=== PATIENT | male | born 1950 | race Caucasian/White ===

== ENCOUNTER 2018-01-28 09:30 | Inpatient (IN) | payer OTHER, MEDICARE ==
[2018-01-30] MEDS ORDERED: morphINE PF 0.2 MG in SYRINGE INTRATHECAL 1 SYR IT ONE (05:51)
[2018-01-30] MEDS ORDERED: GABAPENTIN 300 MG CAP PO ONE (05:51)
[2018-01-30] MEDS ORDERED: ACETAMINOPHEN 500 MG TAB PO ONE (05:51)
[2018-01-30] MEDS ORDERED: ceFAZolin 2 GM/DEXTROSE 100 ML IV ONE (05:51)
[2018-01-30] MEDS ORDERED: fentaNYL 50 MCG in SYRINGE INTRATHECAL 1 SYR IT ONE (05:51)
[2018-01-30] MEDS ORDERED: LR 1,000 ML IV ONE (05:53)
[2018-01-30] MEDS ORDERED: TRANEXAMIC ACID 1,000 MG in NS 100 ML IV ONE (06:00)
[2018-01-30] MEDS ORDERED: BUPIVACAINE 0.25% 30 ML SDV ONE (06:43)
[2018-01-30] MEDS ORDERED: EPINEPHrine 1 MG/ML INJ ONE (06:43)
[2018-01-30] MEDS ORDERED: CHLORHEXIDINE GLUC HIBICLENS 118 ML BTL TP ONE (06:43)
[2018-01-30] MEDS ORDERED: BACITRACIN 50,000 UNITS/10 ML SYR IRR ONE ×3 (06:44→12:09)
[2018-01-30] MEDS ORDERED: THROMBIN (BOVINE) 5,000 UNIT VIAL TP ONE (06:44)
--- NOTE | 2018-01-30 06:58 | PDHPUP ---
History & Physical Update H&P update statement: This history and physical update is based on an assessment of the patient which was completed after admission or registration (within 24 hours), but prior to the surgery/procedure. H&P update: H&P reviewed & patient examined, no change in patient's condition since H&P completed
[2018-01-30] MEDS ORDERED: MIDAZOLAM 2 MG/2 ML VIAL IVP ONE (07:01)
--- NOTE | 2018-01-30 07:01 | PDANEPAE ---
ANE History of Present Illness 68 year with LBP ANE Past Medical History - Cardiovascular History Hx Hypertension: Yes Hx Arrhythmias: No Hx Chest Pain: No Hx Coronary Artery / Peripheral Vascular Disease: No Hx CHF / Valvular Disease: No Hx Palpitations: No - Pulmonary History Hx COPD: No Hx Asthma/Reactive Airway Disease: No Hx Recent Upper Respiratory Infection: No Hx Oxygen in Use at Home: No Hx Sleep Apnea: No Sleep Apnea Screening Result - Last Documented: Positive Pulmonary History Comment: KOBE triggers - Neurologic History Hx Cerebrovascular Accident: No Hx Seizures: No Hx Dementia: No Neurologic History Comment: right leg nerve pain, tingling - Endocrine History Hx Diabetes: No - Renal History Hx Renal Disorders: No - Liver History Hx Hepatic Disorders: No - Neurological & Psychiatric Hx Hx Neurological and Psychiatric Disorders: No - Cancer History Hx Cancer: No - Congenital Disorder History Hx Congenital Disorders: No - GI History Hx Gastrointestinal Disorders: No - Other Health History Other Health History: glasses for reading. torn rotator cuffs in both shoulders - Chronic Pain History Chronic Pain: Yes (low back, bilateral shoulders) - Surgical History Prior Surgeries: lumbar discectomy, 2002. 2 spinal injections ANE Review of Systems Review of systems is: negative Review of Systems: - Exercise capacity METS (RN): 4 METS ANE Patient History - Allergies Allergies/Adverse Reactions: No Known Allergies Allergy (Verified 01/21/18 15:24) - Home Medications Home medications: home medication list seen and reviewed Home Medications: Lisinopril/Hctz 20/12.5MG 01/21/18 [Last Taken 01/30/18] - NPO status NPO Status: no food or drink >8 hours NPO Since - Liquids (Date): 01/29/18 NPO Since - Liquids (Time): 20:30 NPO Since - Solids (Date): 01/29/18 NPO Since - Solids (Time): 18:30 - Anes Hx Anes Hx: no prior problems - Smoking Hx Smoking Status: Never smoked - Family Anes Hx Family Hx Anesthesia Complications: none ANE Labs/Vital Signs - Vital Signs Blood Pressure: 143/93 Heart Rate: 90 Respiratory Rate: 16 O2 Sat (%): 93 Height: 177.8 cm Weight: 90.718 kg ANE Physical Exam - Airway Neck exam: FROM Mallampati Score: Class 1 Mouth exam: normal dental/mouth exam - Pulmonary Pulmonary: no respiratory distress - Cardiovascular Cardiovascular: regular rate and rhythym - ASA Status ASA Status: II ANE Anesthesia Plan Anesthesia Plan: general endotracheal anesthesia
[2018-01-30] MEDS ORDERED: CITRATE DEXTROSE SOLN 500 ML BAG ONE (07:02)
[2018-01-30] MEDS ORDERED: fentaNYL 100 MCG/2 ML INJ ONE (07:16)
[2018-01-30] MEDS ORDERED: REMIFENTANIL HCL 1 MG VIAL ONE ×2 (07:16→09:56)
[2018-01-30] MEDS ORDERED: PROPOFOL 200 MG/20 ML VIAL ONE (07:17)
[2018-01-30] MEDS ORDERED: KETAMINE 200 MG/20 ML VIAL ONE (07:17)
[2018-01-30] MEDS ORDERED: PROPOFOL/EMULSION 500 MG/50 ML BOTTLE IV ONE ×2 (07:17→09:56)
[2018-01-30] MEDS ORDERED: fentaNYL 100 MCG/2 ML INJ IVP PRN (12:39)
[2018-01-30] MEDS ORDERED: ONDANSETRON 4 MG/2 ML VIAL IVP PRN ×2 (12:39→12:49)
[2018-01-30] MEDS ORDERED: PROMETHAZINE HCL 25 MG/ML INJ IVP PRN (12:39)
[2018-01-30] MEDS ORDERED: HYDROmorphONE/DILAUDID 2 MG/ML INJ IVP PRN (12:39)
[2018-01-30] MEDS ORDERED: MEPERIDINE 25 MG/0.5 ML AMP IVP PRN (12:39)
[2018-01-30] MEDS ORDERED: NALOXONE HCL 0.4 MG/ML INJ IVP PRN ×2 (12:39→12:49)
[2018-01-30] MEDS ORDERED: DIAZEPAM 5 MG/ML 1 ML SYR IVP PRN (12:39)
[2018-01-30] MEDS ORDERED: ONDANSETRON DISINTEGRATING 4 MG TAB PO PRN (12:49)
[2018-01-30] MEDS ORDERED: BISACODYL 10 MG SUPP PR PRN (12:49)
[2018-01-30] MEDS ORDERED: MAGNESIUM HYDROXIDE 30 ML UDCUP PO PRN (12:49)
[2018-01-30] MEDS ORDERED: LACTULOSE 20 GM/30 ML UDCUP PO PRN (12:49)
[2018-01-30] MEDS ORDERED: oxyCODONE IR 5 MG TAB PO PRN (12:49)
[2018-01-30] MEDS ORDERED: diphenhydrAMINE 25 MG CAP PO PRN (12:49)
[2018-01-30] MEDS ORDERED: morphINE PCA 30 MG/30 ML PCA IV PRN (12:49)
--- NOTE | 2018-01-30 12:59 | POSTANESTH ---
Post Anesthetic Evaluation Cardiovascular Status: Normal, Stable Respiratory Status: Normal, Stable Level of Consciousness/Mental Status: Can Participate in Eval Pain Control: Adequate, Prn Tx Ordered Nausea/Vomiting Control: Adequate, Prn Tx Ordered Complications Possibly Related to Anesthesia: None Noted
[2018-01-30] MEDS ORDERED: NS 1,000 ML IV SCH (13:00)
--- NOTE | 2018-01-30 13:07 | SOAPPROG ---
SOAP Progress Note Assessment/Plan: Assessment: 68 yo M sp L4-S1 TLIF Plan: stable HOB flat for 24 hours do NOT put BETO to suction scd/luis for dvt prophylaxis please call with neuro changes 01/30/18 13:05 Subjective: no back pain, no leg pain. Objective: Vital Signs Temp Pulse Resp BP Pulse Ox 36.9 C 90 16 143/93 H 93 01/30/18 06:05 01/30/18 07:01 01/30/18 07:01 01/30/18 07:01 01/30/18 07:01 awake, alert PERRL, no facial droop 5/5 + light touch ICD10 Worksheet Patient Problems: Problems Problem Status Onset Fusion of spine of lumbar region Acute - ICD10 Problem Qualifiers (1) Fusion of spine of lumbar region
[2018-01-30] MEDS: ceFAZolin 2 GM/DEXTROSE 100 ML IV SCH ×2 (14:27→22:00)
--- NOTE | 2018-01-30 15:19 | GOP ---
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 Intractable low back pain and right lower extremity radiculopathy. Failed conservative care. 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 Intractable low back pain and right lower extremity radiculopathy. Failed conservative care. PROCEDURE PERFORMED: Mini-open exposure for right-sided far lateral transpedicular decompressions at L4-5 and L5-S1 levels. L4 S1 posterior segmental (pedicle screw and axle device) fixation and posterolateral fusion with local autograft and bone morphogenic protein. L4-5 and L5-S1 posterior/ transforaminal lumbar interbody fusion with 2 structural PEEK interbody spacers with local autograft and bone morphogenic protein. Use of intraoperative microscopy fluoroscopy and computer volumetric stereotactic navigation with intraoperative neurophysiologic testing. Injection of intrathecal narcotic analgesics. Repair of cerebrospinal fluid leak/durotomy requiring laminectomy. FINDINGS: DESCRIPTION OF PROCEDURE: After informed consent was obtained, the patient was taken to the operating room and placed in the prone position on the Mario table. The lumbosacral area was prepped and draped in a sterile fashion, and after fluoroscopic localization of the correct levels. The subcutaneous and intramuscular tissues were infiltrated with local anesthesia. A midline linear incision was then created from approximately L4-S1. This was carried down the fascial layer, which was then incised using the monopolar electrocautery and carried in the subperiosteal plane along the spinous processes and out the lamina bilaterally. Intraoperative fluoroscopy was again utilized to verify the correct levels. Following this, the dissection was carried out over the facet joints. The microscope was then brought in and right -sided far lateral transpedicular decompressions were performed with complete unroofing of the facet joint and neural foramen at the L4, L5, and S1 levels. There was a fairly large amount of scar tissue, especially at the L4-5 level where there had been a prior hemilaminotomy. Care was taken to not get a CSF leak. The Wundrbar Neuronavigational System was then brought in and using computer volumetric stereotactic navigation, pedicle screws were placed at L4, L5, and S1 bilaterally. The right L4 screw cracked and broke medially, and this was removed, and I felt that it was not in the patient's best interest to leave the screw in place, and this was, therefore, removed. Rods were then placed, first at L4-5, and then L5-S1 with a slight amount of distraction, during which time complete diskectomies were performed with preparation of the endplates and placement of 2 structural PEEK interbody spacers with local autograft and bone morphogenic protein at each level L4-5 and L5-S1 posterior/transforaminal lumbar interbody fusion. The screw and mely systems were then placed in a slight amount of compression in order to facilitate bony union and to minimize the potential for posterior graft migration. Upon performing the transforaminal diskectomies and fusions, there was noted a very small hole in the dura leaking spinal fluid on the right side just above the takeoff of the S1 nerve root. This appeared to be from a sharp bone spicule , but I was not exactly sure. A single 4-0 Nurolon suture was placed, followed by DuraGen and a small piece of Gelfoam, and no further leakage was identified. After placing the rods in a slight amount of compression and then locking them down to the specified torqued amount from the wrench, the wound was copiously irrigated with antibiotic irrigation and meticulous hemostasis was achieved. The remaining facet joints and lamina on the left side were then extensively decorticated, and the residual local autograft along with bone morphogenic protein was placed out laterally for posterolateral fusion from L4-S1. 200 mcg of Duramorph, along with 50 mcg of fentanyl were injected intrathecally for postoperative pain control. The subcutaneous and intramuscular tissues were re- infiltrated with local anesthesia. An axial device was placed at the L4-5 and L5 -S1 levels due to the brittle bone and the fact that the L4 screw on the right had to be removed. Following this, the wound was closed in a layered fashion using interrupted Vicryl sutures, followed by Steri-Strips on the skin after placing an epidural drain to avoid hematomas or further infections. DISPOSITION: The patient was extubated and transferred to the recovery room in stable condition. /[id number]/MODL MTDD
--- NOTE | 2018-01-30 16:20 | PDMN ---
Medical Necessity Medical necessity: Pt meets INPT criteria per and [facility] [place] S-820 Lumbar Fusion (L4 -S1 TLIF - IPO).
[2018-01-30] MEDS: POLYETHYLENE GLYCOL 3350 17 GM PKT PO SCH ×2 (16:28→22:02)
[2018-01-30] MEDS ORDERED: DIAZEPAM 5 MG TAB PO PRN (17:19)
[2018-01-30] MEDS ORDERED: NS BOLUS 500 ML (Wide open) IV ONE (19:30)
[2018-01-30] MEDS: FAMOTIDINE 20 MG TAB PO SCH (22:00)
[2018-01-30] MEDS: morphINE SR 15 MG TAB PO SCH (22:00)
[2018-01-30] MEDS: SENNOSIDES/DOCUSATE SODIUM TAB PO SCH (22:00)
[2018-01-31 05:32] LABS: PLATELET COUNT 230 10^3/uL (150-400)
--- NOTE | 2018-01-31 08:10 | NEUSURGPN ---
Assessment/Plan: Assessment: 68 yo M sp L4-S1 TLIF POD#1 Plan: neuro stable HOB flat for 24 hours - raise HOB at noon today PT/OT once OOB Xrays once OOB do NOT put BETO to suction scd/luis for dvt prophylaxis please call with neuro changes D/w Dr Amador Subjective: Pt resting in bed, states he is looking forward to getting up Objective: AAOx3 NAD VSS MAEx4 Motor 5/5 BLE +LT JPx1 Urinary Catheter in Place: Yes Urinary Catheter Indication: Surgical Requirement (to be removed today once upright) - Physician Discussed Patient with : [facility] Physical Exam - Vitals, I&O, Labs I and O 01/30/18 01/31/18 02/01/18 05:59 05:59 05:59 Intake Total 2750 Output Total 2080 Balance 670 Weight 90.718 kg Intake: Oral (ml) 550 IV Intake (ml) 2200 Output: Urine (ml) 1700 Catheter 1700 Estimated Blood Loss (ml) 250 BETO Drain Output (ml) 130 Right Back Mario Moya 130 Other: Intake Quantity Yes Sufficient Vital Signs Temp Pulse Resp BP Pulse Ox 36.8 C 84 16 120/56 L 97 01/31/18 07:27 01/31/18 07:27 01/31/18 07:27 01/31/18 07:27 01/31/18 07:27 Laboratory Results 01/31/18 04:40 01/31/18 04:40 ICD10 Worksheet Patient Problems: Problems Problem Status Onset Fusion of spine of lumbar region Acute
[2018-01-31] MEDS: morphINE SR 15 MG TAB PO SCH ×2 (08:40→22:08)
[2018-01-31] MEDS: SENNOSIDES/DOCUSATE SODIUM TAB PO SCH ×2 (08:41→22:08)
[2018-01-31] MEDS: FAMOTIDINE 20 MG TAB PO SCH ×2 (08:41→22:08)
[2018-01-31] MEDS: ENOXAPARIN 40 MG/0.4 ML SYR SC SCH (08:42)
[2018-01-31] MEDS: POLYETHYLENE GLYCOL 3350 17 GM PKT PO SCH ×3 (10:02→22:09)
--- NOTE | 2018-01-31 15:31 | ASMTCMCOM ---
CM Note CM Note Notes: Pt is a 68 y/o man admitted for fusion of spine of lumbar region. Therapies have been ordered and awaiting recommendations. Needs are TBD at this time. CM to follow. Plan: TBD Date Signed: 01/31/2018 03:31 PM Electronically Signed By:KENZIE Peck
[2018-01-31] MEDS: METHOCARBAMOL 750 MG TAB PO PRN ×2 (17:34→23:15)
[2018-02-01] MEDS: METHOCARBAMOL 750 MG TAB PO PRN ×2 (05:19→13:05)
[2018-02-01] MEDS: POLYETHYLENE GLYCOL 3350 17 GM PKT PO SCH ×3 (09:02→20:23)
[2018-02-01] MEDS: SENNOSIDES/DOCUSATE SODIUM TAB PO SCH ×2 (09:02→20:23)
[2018-02-01] MEDS: FAMOTIDINE 20 MG TAB PO SCH ×2 (09:02→20:24)
[2018-02-01] MEDS: ENOXAPARIN 40 MG/0.4 ML SYR SC SCH (09:02)
[2018-02-01] MEDS: morphINE SR 15 MG TAB PO SCH ×2 (09:02→20:23)
--- NOTE | 2018-02-01 11:04 | NEUSURGPN ---
Date of Surgery: 01/30/18 Post Op Day: 2 Assessment/Plan: Assessment: 68 yo M sp L4-S1 TLIF POD#2 Plan: -neuro stable -Patient was flat x24hrs post op, now ambulating-denies headache -PT/OT eval/treat-possible dc tomorrow vs Saturday -Post op xrays stable hardware placement -do NOT put BETO to suction, leave in for today -scd/luis for dvt prophylaxis -Discussed patient with Dr Amador Subjective: Pt had light headed episode with ambulation earlier today, feeling better now. Sitting up in bed Objective: AxO x4 GUNTER x4 5/5 BUE, BLE Sensation intact to light touch BLE Incision/Dressing CDI BETO not to suction-patent Neuro Check Frequency: per routine Urinary Catheter in Place: No - Physician Discussed Patient with : [facility] Physical Exam - Vitals, I&O, Labs I and O 01/31/18 02/01/18 02/02/18 05:59 05:59 05:59 Intake Total 2750 1150 Output Total 2080 1570 Balance 670 -420 Weight 90.718 kg Intake: Oral (ml) 550 1150 IV Intake (ml) 2200 Output: Urine (ml) 1700 1500 Catheter 1700 Urinal 1500 Estimated Blood Loss (ml) 250 BETO Drain Output (ml) 130 70 Right Back Mario Moya 130 70 Other: Intake Quantity Yes Sufficient Number of Voids Urinal 1 Vital Signs Temp Pulse Resp BP Pulse Ox 37.1 C 100 16 108/73 97 02/01/18 08:00 02/01/18 08:00 02/01/18 08:00 02/01/18 08:00 02/01/18 08:00 Laboratory Results 01/31/18 04:40 01/31/18 04:40 ICD10 Worksheet Patient Problems: Problems Problem Status Onset Fusion of spine of lumbar region Acute
--- NOTE | 2018-02-01 16:16 | ASMTCMCOM ---
CM Note CM Note Notes: Spoke with pt in the room and with NS PA. Pt states he lives with a "young lady friend" and has a sister and brother in law nearby who are available to be supportive. Pt feels comfortable following up with OP PT as recommended by PT deana. No CM needs noted at this time. CM available should needs change. D/C Plan: Independent Date Signed: 02/01/2018 04:15 PM Electronically Signed By:Komal Ornelas
[2018-02-02] MEDS: METHOCARBAMOL 750 MG TAB PO PRN ×3 (03:06→13:32)
--- NOTE | 2018-02-02 10:00 | NEUSURGPN ---
Date of Surgery: 01/30/18 Post Op Day: 3 Assessment/Plan: Assessment: 68 yo M sp L4-S1 TLIF POD#3 Plan: -neuro stable -Patient was flat x24hrs post op, now ambulating-denies headache -PT/OT -Post op xrays stable hardware placement -Remove BETO -Ok to discharge home -scd/luis for dvt prophylaxis -Discussed patient with Dr Amador Subjective: Sitting in chair, doing well Objective: AxO x4 GUNTER x4 5/5 BUE, BLE Sensation intact to light touch BLE Dressing/incision CDI BETO not to suction, patent Neuro Check Frequency: per routine Urinary Catheter in Place: No - Physician Discussed Patient with DrQuita: [facility] Physical Exam - Vitals, I&O, Labs I and O 02/01/18 02/02/18 02/03/18 05:59 05:59 05:59 Intake Total 1150 1500 500 Output Total 1570 745 220 Balance -420 755 280 Intake: Oral (ml) 1150 1500 500 Output: Urine (ml) 1500 695 200 Urinal 1500 695 200 BETO Drain Output (ml) 70 50 20 Right Back Mario Moya 70 50 20 Other: Intake Quantity Yes Yes Sufficient Number of Voids Urinal 1 1 Vital Signs Temp Pulse Resp BP Pulse Ox 36.9 C 100 13 133/79 H 90 L 02/02/18 08:00 02/02/18 08:00 02/02/18 08:00 02/02/18 08:00 02/02/18 08:00 Laboratory Results 01/31/18 04:40 01/31/18 04:40 ICD10 Worksheet Patient Problems: Problems Problem Status Onset Fusion of spine of lumbar region Acute
[2018-02-02] MEDS: POLYETHYLENE GLYCOL 3350 17 GM PKT PO SCH (10:27)
[2018-02-02] MEDS: ENOXAPARIN 40 MG/0.4 ML SYR SC SCH (10:27)
[2018-02-02] MEDS: SENNOSIDES/DOCUSATE SODIUM TAB PO SCH (10:27)
[2018-02-02] MEDS: FAMOTIDINE 20 MG TAB PO SCH (10:27)
[2018-02-02] MEDS: morphINE SR 15 MG TAB PO SCH (10:28)
[2018-02-02] MEDS ORDERED: ACETAMINOPHEN 325 MG TAB PO PRN (10:38)
--- NOTE | 2018-02-02 11:40 | ASMTLACE ---
LACE Length of stay for Answers: 3 days current admission Comorbidities - select Answers: Opioid dependence all that apply / Chronic pain Other Notes: HTN # of Emergency department Answers: 0 visits in the last 6 months Score: 8 Date Signed: 02/02/2018 11:40 AM Electronically Signed By:Radha Concepcion LCSW
--- NOTE | 2018-02-02 11:44 | ASDISCHSUM ---
Discharge Information Plan Status:Home with No Needs Medically Cleared to Leave:02/02/2018 Discharge Date:02/02/2018 CM D/C Disposition:Home, Routine, Self-Care ADT D/C Disposition:Home, Routine, Self-Care Projected Discharge Date:02/02/2018 12:00 PM Transportation at D/C:Friend Discharge Delay Reason: Follow-Up Date:02/02/2018 12:00 PM Discharge Slot:1 - 8:01 am - 12:00 noon Final Diagnosis:Stenosis, DJD Placement Information Patient Contact Information Contact Name:TODDBOONE Relationship:Son Address: Work Phone: City: [facility] Phone: State/[address] Code: Email: Financial Information Financial Class:Medicare Primary Plan Desc:MEDICARE INPATIENT Primary Plan Number:[id number] Secondary Plan Desc:DWAYNE/MARIBEL SUPPLEMENT Secondary Plan Number:[id number] Assessment Information LACE LACE Length of stay for Answers: 3 days current admission Comorbidities - select Answers: Opioid dependence all that apply / Chronic pain Other Notes: HTN # of Emergency department Answers: 0 visits in the last 6 months Score: 8 Date Signed: 02/02/2018 11:40 AM Electronically Signed By:Radha Concepcion LCSW [facility] CM Progress Note CM Note CM Note Notes: Pt is a 68 y/o man admitted for fusion of spine of lumbar region. Therapies have been ordered and awaiting recommendations. Needs are TBD at this time. CM to follow. Plan: TBD Date Signed: 01/31/2018 03:31 PM Electronically Signed By:KENZIE Peck [facility] CM Progress Note CM Note CM Note Notes: Spoke with pt in the room and with ROSS BYRNES. Pt states he lives with a "young lady friend" and has a sister and brother in law nearby who are available to be supportive. Pt feels comfortable following up with OP PT as recommended by PT deana. No CM needs noted at this time. CM available should needs change. D/C Plan: Independent Date Signed: 02/01/2018 04:15 PM Electronically Signed By:Komal Ornelas Case Management Discharge Plan Note Case Management Discharge Discharge Order Complete? Answers: Yes Patient to Obtain Answers: Other Notes: via friend Medications Transportation Arranged Answers: Family/Friends Transport will Pick (Date 02/02/2018 12:00 PM & Time) Family Notified Answers: Yes Notes: Family/Friend to transport Discharge Comments Notes: Patient has been discharged home with Significant Other. He will f/u with out-pt PT. No other needs. Date Signed: 02/02/2018 11:43 AM Electronically Signed By:Radha Concepcion LCSW Intervention Information Intervention Type:*Incorrect Registration Date of Service:01/30/2018 04:15 PM Patient Type:Observation Staff Member:Yue Baker Hours: Discipline: Severity: Comment: Intervention Type:*IM-Signed Date of Service:02/02/2018 11:24 AM Patient Type:Inpatient Staff Member:Shaquille Benedict Hours: Discipline: Severity: Comment:
[2018-02-02 12:02] VITALS: BP 108/66
--- NOTE | 2018-02-05 12:46 | GDS ---
ADMISSION DIAGNOSIS: Lumbar degenerative joint disease. DISCHARGE DIAGNOSIS: L4 to S1 transforaminal lumbar interbody fusion. HISTORY AND PHYSICAL: Please see admission history and physical. HOSPITAL COURSE: Patient is a 68-year-old male who presented with ongoing severe axial low back pain and left lateral thigh numbness. He had persistent symptoms despite an extensive course of conserva tive care. He was taken to the operating room on 01/30/2018, where he underwent an L4-5 and L5-S1 tr ansforaminal lumbar interbody fusion. There was a small pinhole durotomy at the right L5-S1 level du ring the decompression. This was closed primarily. He was kept with his head of bed flat for 24 lisa rs. His activity was advanced, and he was tolerating a regular diet. He was ambulating on his own. He was discharged home in stable condition on 02/02/2018. Patient was discharged with lumbar fusion instructions and recommended he return for a neurosurgical followup appointment in 10-14 days. /[id number]/MODL
== END 2018-02-02 14:20 | disposition home or self-care (01) | DRG 454 ==
LOC: OBSVTOIN 01-30 05:23 → F3N 01-30 05:23
PROVIDERS: ADMIT Neurological Surgery; ATTEND Neurological Surgery
PROC: 00Q20ZZ Repair Dura Mater, Open Approach (ICD-10-PCS; principal; 2018-01-30 07:15)
PROC: 0ST20ZZ Resection of Lumbar Vertebral Disc, Open Approach (ICD-10-PCS; principal; 2018-01-30 07:15)
PROC: 0SG00AJ Fusion of Lumbar Vertebral Joint with Interbody Fusion Device, Posterior Approach, Anterior Column, Open Approach (ICD-10-PCS; principal; 2018-01-30 07:15)
PROC: 00NY0ZZ Release Lumbar Spinal Cord, Open Approach (ICD-10-PCS; principal; 2018-01-30 07:15)
PROC: 8E0WXBZ Computer Assisted Procedure of Trunk Region (ICD-10-PCS; principal; 2018-01-30 07:15)
PROC: 0SG0071 Fusion of Lumbar Vertebral Joint with Autologous Tissue Substitute, Posterior Approach, Posterior Column, Open Approach (ICD-10-PCS; principal; 2018-01-30 07:15)
PROC: 01NB0ZZ Release Lumbar Nerve, Open Approach (ICD-10-PCS; principal; 2018-01-30 07:15)
PROC: 0SG30AJ Fusion of Lumbosacral Joint with Interbody Fusion Device, Posterior Approach, Anterior Column, Open Approach (ICD-10-PCS; principal; 2018-01-30 07:15)
PROC: 4A1004G Monitoring of Central Nervous Electrical Activity, Intraoperative, Open Approach (ICD-10-PCS; principal; 2018-01-30 07:15)
PROC: 0SG3071 Fusion of Lumbosacral Joint with Autologous Tissue Substitute, Posterior Approach, Posterior Column, Open Approach (ICD-10-PCS; principal; 2018-01-30 07:15)
DX: M51.36 Other intervertebral disc degeneration, lumbar region (principal); G97.41 Accidental puncture or laceration of dura during a procedure; M48.061 Spinal stenosis, lumbar region without neurogenic claudication; M51.16 Intervertebral disc disorders with radiculopathy, lumbar region; I10 Essential (primary) hypertension; G47.33 Obstructive sleep apnea (adult) (pediatric)
CPT/HCPCS: 97116-GP; 97161-GP; 97165-GO; 97530-GO; 97535-GO; C1713; G8978-GP-CJ; G8979-GP-CI; G8987-GO-CK; G8988-GO-CI; J0171; J0690; J1650; J2250; J2274; J2704; J3010